=== PATIENT | female | born 1985 | race Caucasian/White ===

== ENCOUNTER 2017-03-19 10:18 | Emergency (ER) | payer OTHER ==
[~2017-03-19] VITALS: Ht 170.2 cm; Wt 68.0 kg
[~2017-03-19 10:18] MED LIST: DIAZ5 PO; PERC5TAB12 PO; ZOFR4TAB3 SL
[2017-03-19 10:20] VITALS: BP 141/86; PULSE 87; RESP 14; TEMP 98.4; O2SAT 100
[2017-03-19] MEDS ORDERED: SODIUM CHLOR 0.9% 1000 ML INJ 1,000 ML IV ONE ×2 (12:11→13:00)
[2017-03-19] MEDS ORDERED: SODIUM CHLORIDE 0.9% FLUSH 10 ML FLUSH IVF PRN (12:15)
[2017-03-19] MEDS ORDERED: diphenhydrAMINE HCL 50 MG/ML VIAL IVP ONE (12:15)
[2017-03-19] MEDS ORDERED: DEXAMETHASONE SOD PHOS 20 MG/5 ML VIAL IV PUSH ONE (12:15)
[2017-03-19] MEDS ORDERED: METOCLOPRAMIDE HCL 10 MG/2 ML VIAL IVP ONE (12:15)
--- NOTE | 2017-03-19 12:23 | PD ---
HPI Chief Complaint: Headache Time Seen by Provider: 11:55 Travel History International Travel<30 days: No Contact w/Intl Traveler<30days: No Traveled to known affect area: No History of Present Illness HPI Patient is a 32-year-old female who presents to emergency with complaints of migraine headache. Patient reports that she has had frontal headache which has been ongoing for the past 2 days. Patient reports that this is associated with vision changes, along with photophobia. Patient reports that she has history of migraines in the past, reports that symptoms are more severe today. Patient reports that she did take taking Excedrin migraine with no relief of symptoms she also tried taking magnesium with no relief of symptoms as well. Patient reports that she has been feeling nauseous and has been vomiting, reports no relief with jouo-edo-affdgnv migraine medications. Patient denies any fever or chills, neck pain. Denies any chest pain or shortness of breath, patient with no other complaints at this time. PFSH Past Medical History Headaches: Yes ?: Not LMP: CURRENT Past Surgical History Surgical History: No Previous Surgery Tonsillectomy: Yes Other Surgery: Yes (BREAST AUGUMENTATION) Social History Alcohol Use: Yes (SOCIALLY) Tobacco Use: No Substance Use: No Allergies-Medications (Allergen,Severity, Reaction): Coded Allergies: amoxicillin (Verified Allergy, Severe, Hives, 02/02/17) Reported Meds & Prescriptions Reported Meds & Active Scripts Active Fioricet (Ixzdjdfqiv-Iqfytdfvecwcm-Buakhmrs) 50-300-40 Mg Cap 1-2 Cap PO Q6H PRN Zofran Odt (Ondansetron Odt) 4 Mg Tab 4 Mg SL Q6HR PRN Percocet (Oxycodone-Acetaminophen) 5-325 mg Tab 1 Tab PO Q8HR PRN 5 Days Valium (Diazepam) 5 Mg Tab 5 Mg PO BID PRN 5 Days Review of Systems General / Constitutional: No: Fever Eyes: No: Visual changes HENT: No: Headaches, Neck Stiffness, Neck Pain Cardiovascular: No: Chest Pain or Discomfort, Palpitations, Irregular Rhythm, Tachycardia Respiratory: No: Shortness of Breath Gastrointestinal: No: Abdominal Pain Genitourinary: No: Dysuria Musculoskeletal: No: Pain Skin: No Rash Neurologic: Positive: Headache, No: Weakness, Dizziness, Syncope, Focal Abnormalities, Coordination Problem, Tremor, Ataxia, Seizures Psychiatric: No: Depression Endocrine: No: Polydipsia Hematologic/Lymphatic: No: Easy Bruising Physical Exam Narrative GENERAL: moderate distress SKIN: Focused skin assessment warm/dry. HEAD: Atraumatic. Normocephalic. EYES: Pupils equal and round. No scleral icterus. No injection or drainage. ENT: No nasal bleeding or discharge. Mucous membranes pink and moist. NECK: Trachea midline. No JVD. Negative Kernig's and Brudzinski sign CARDIOVASCULAR: Regular rate and rhythm. No murmur appreciated. RESPIRATORY: No accessory muscle use. Clear to auscultation. Breath sounds equal bilaterally. GASTROINTESTINAL: Abdomen soft, non-tender, nondistended. Hepatic and splenic margins not palpable. MUSCULOSKELETAL: No obvious deformities. No clubbing. No cyanosis. No edema. NEUROLOGICAL: Awake and alert. No obvious cranial nerve deficits. Motor grossly within normal limits. Normal speech. CN 2-12 grossly intact with no neurovascular compromise PSYCHIATRIC: Appropriate mood and affect; insight and judgment normal. Data Data Last Documented VS Vital Signs Date Time Temp Pulse Resp B/P (MAP) Pulse Ox O2 Delivery O2 Flow Rate FiO2 03/19/17 12:49 100 03/19/17 10:20 98.4 87 14 Orders Orders Complete Blood Count With Diff (03/19/17 12:11) Comprehensive Metabolic Panel (03/19/17 12:11) Prothrombin Time / Inr (Pt) (03/19/17 12:11) Act Partial Throm Time (Ptt) (03/19/17 12:11) Ct Brain W/O Iv Contrast(Rout) (03/19/17 12:11) Ecg Monitoring (03/19/17 12:11) Iv Access Insert/Monitor (03/19/17 12:11) Oximetry (03/19/17 12:11) Sodium Chloride 0.9% Flush (Ns Flush) (03/19/17 12:15) Diphenhydramine Inj (Benadryl Inj) (03/19/17 12:15) Metoclopramide Inj (Reglan Inj) (03/19/17 12:15) Sodium Chlor 0.9% 1000 Ml Inj (Ns 1000 M (03/19/17 12:11) Dexamethasone Inj (Decadron Inj) (03/19/17 12:15) Ed Urine Pregnancytest Poc (03/19/17 12:49) Sodium Chlor 0.9% 1000 Ml Inj (Ns 1000 M (03/19/17 13:00) Ketorolac Inj (Toradol Inj) (03/19/17 14:30) Magnesium Sulfate 1 Gm Premix (Magnesium (03/19/17 14:45) Labs Laboratory Tests Test 03/19/17 13:30 White Blood Count 8.3 TH/MM3 Red Blood Count 4.70 MIL/MM3 Hemoglobin 13.6 GM/DL Hematocrit 39.3 % Mean Corpuscular Volume 83.5 FL Mean Corpuscular Hemoglobin 28.9 PG Mean Corpuscular Hemoglobin Concent 34.6 % Red Cell Distribution Width 13.3 % Platelet Count 284 TH/MM3 Mean Platelet Volume 7.1 FL Neutrophils (%) (Auto) 70.6 % Lymphocytes (%) (Auto) 22.2 % Monocytes (%) (Auto) 5.3 % Eosinophils (%) (Auto) 1.5 % Basophils (%) (Auto) 0.4 % Neutrophils # (Auto) 5.9 TH/MM3 Lymphocytes # (Auto) 1.8 TH/MM3 Monocytes # (Auto) 0.4 TH/MM3 Eosinophils # (Auto) 0.1 TH/MM3 Basophils # (Auto) 0.0 TH/MM3 CBC Comment DIFF FINAL Differential Comment Prothrombin Time 10.5 SEC Prothromb Time International Ratio 1.0 RATIO Activated Partial Thromboplast Time 26.1 SEC Blood Urea Nitrogen 8 MG/DL Creatinine 0.54 MG/DL Random Glucose 80 MG/DL Total Protein 7.2 GM/DL Albumin 3.9 GM/DL Calcium Level 8.3 MG/DL Alkaline Phosphatase 52 U/L Aspartate Amino Transf (AST/SGOT) 16 U/L Alanine Aminotransferase (ALT/SGPT) 12 U/L Total Bilirubin 0.6 MG/DL Sodium Level 138 MEQ/L Potassium Level 3.7 MEQ/L Chloride Level 108 MEQ/L Carbon Dioxide Level 21.8 MEQ/L Anion Gap 8 MEQ/L Estimat Glomerular Filtration Rate 131 ML/MIN MDM Medical Decision Making Medical Screen Exam Complete: Yes Emergency Medical Condition: Yes Medical Record Reviewed: Yes Interpretation(s) Vital Signs Date Time Temp Pulse Resp B/P (MAP) Pulse Ox O2 Delivery O2 Flow Rate FiO2 03/19/17 10:20 98.4 87 14 141/86 (104) 100 Differential Diagnosis migraine, ICH, electrolyte abnormality, SAH Narrative Course During the course of the patients emergency department visit, the patients history, examination, and differential diagnosis were reviewed with the patient. The patient was placed on a borematic operator with oximetry and frequent blood pressure monitoring. The patient had 20 gauge IV access obtained and blood work sent for analysis. The patient was initially provided IV dexamethasone, IV reglan and IV Benadryl The patients laboratory studies were reviewed and remarkable for: CBC & BMP Diagram 03/19/17 13:30 Total Protein 7.2, Albumin 3.9, Calcium Level 8.3 L, Alkaline Phosphatase 52, Aspartate Amino Transf (AST/SGOT) 16, Alanine Aminotransferase (ALT/SGPT) 12, Total Bilirubin 0.6 Radiology studies were reviewed and remarkable for: Last Impressions Head CT 03/19/17 1211 Signed Impressions: Service Date/Time: Friday, March 19, 2017 13:23 - CONCLUSION: Normal examination. Jn Simons MD Patient reevaluated, patient reports that she is feeling much better at this time. I did offer her LP to rule out SAH, all risks and benefits reviewed with her in detail, patient refuses LP at this time as she reports that she is feeling much better with near resolution of symptoms. Patient reevaluated, patient reports complete resolution of symptoms at this time. LP was offered again to rule out SAH - patient refuses procedure at this time. Signs and symptoms of when to return to the ER was reviewed with patient in detail. She will follow up with her pcp and will return to ER as needed Critical Care Narrative Aggregate critical care time was 30 minutes. Time to perform other separately billable procedures was not included in the critical care time. My time did not include minutes spent treating any other patients simultaneously or on activities that did not directly contribute to the patient's treatment. The services I provided to this patient were to treat and/or prevent clinically significant deterioration that could result in: , decompensation, deterioration I provided critical care services requiring my management, as noted below: Chart data review, documentation time, medication orders and management, vital sign assessments/reviewing monitor data, ordering and reviewing lab tests, ordering and interpreting/reviewing x-rays and diagnostic studies, care of the patient and discussion of the patient with the admitting physicians. Diagnosis Primary Impression: Cephalgia Qualified Codes: R51 - Headache Patient Instructions: General Instructions Additional Instructions: Please provide patient with a copy of their lab work and studies at discharge* * Please follow up with your primary care doctor in 2-3 days Return to the ER if symptoms worsen or progress Return to the ER as needed Please drink plenty of fluids Med/Other Pt SpecificInfo: Prescription(s) given Scripts Wblxblweae-Ppzazwgdigzyv-Ljqemhyh (Fioricet) 50-300-40 Mg Cap 1-2 CAP PO Q6H Y for HEADACHE, #12 CAP 0 Refills Prov: Tita Duran DO 03/19/17 Disposition: 01 DISCHARGE HOME Condition: Stable Tita Duran DO Mar 19, 2017 12:23
[2017-03-19 12:49] VITALS: O2SAT 100
[2017-03-19 14:03] LABS: AUTOMATED NEUTROPHIL # 5.9 TH/MM3 (1.8-7.7); BASOPHIL % 0.4 % (0.0-2.0); EOSINOPHIL # 0.1 TH/MM3 (0-0.4); EOSINOPHIL % 1.5 % (0.0-4.0); HEMATOCRIT 39.3 % (35.0-46.0); HEMO FLAGS DIFF FINAL; LYMPH % 22.2 % (9.0-44.0); LYMPHOCYTE # 1.8 TH/MM3 (1.0-4.8); MEAN CELL VOLUME 83.5 FL (80.0-100.0); MEAN CORPUSCULAR HEMOGLOBIN 28.9 PG (27.0-34.0); MEAN CORPUSCULAR HGB CONC 34.6 % (32.0-36.0); MONO % 5.3 % (0.0-8.0); NEUT % 70.6 % (16.0-70.0); PLATELET COUNT 284 TH/MM3 (150-450); RED CELL DISTRIBUTION WIDTH 13.3 % (11.6-17.2); WHITE BLOOD COUNT 8.3 TH/MM3 (4.0-11.0)
[2017-03-19 14:15] LABS: APTT (PATIENT) 26.1 SEC (24.3-30.1); PROTHROMBIN TIME - PATIENT 10.5 SEC (9.8-11.6)
[2017-03-19 14:22] LABS: ALKALINE PHOSPHATASE 52 U/L (45-117); ALT (GPT) 12 U/L (10-53); TOTAL BILIRUBIN ADULT 0.6 MG/DL (0.2-1.0)
--- NOTE | 2017-03-19 14:26 | RADRPT ---
EXAM DATE/TIME: 03/19/2017 13:23 [facility] COMPARISON: No previous studies available for comparison. INDICATIONS : Headaches with vomiting and blurred vision for two days. RADIATION DOSE: 34.92 CTDIvol (mGy) MEDICAL HISTORY : None SURGICAL HISTORY : Tonsillectomy. ENCOUNTER: Initial ACUITY: 2 days PAIN SCALE: 9/10 LOCATION: Bilateral cranial TECHNIQUE: Multiple contiguous axial images were obtained of the head. Using automated exposure control and adj ustment of the mA and/or kV according to patient size, radiation dose was kept as low as reasonably a chievable to obtain optimal diagnostic quality images. DICOM format image data is available electro nically for review and comparison. FINDINGS: CEREBRUM: The ventricles are normal for age. No evidence of midline shift, mass lesion, hemorrhage or acute in farction. No extra-axial fluid collections are seen. POSTERIOR FOSSA: The cerebellum and brainstem are intact. The 4th ventricle is midline. The cerebellopontine angle i s unremarkable. EXTRACRANIAL: The visualized portion of the orbits is intact. SKULL: The calvaria is intact. No evidence of skull fracture. CONCLUSION: Normal examination. Jn Simons MD on March 19, 2017 at 14:24 Board Certified Radiologist. This report was verified electronically.
[2017-03-19 14:28] LABS: ANION GAP 8 MEQ/L (5-15); AST (GOT) 16 U/L (15-37); BICARBONATE 21.8 MEQ/L (21.0-32.0); BLOOD UREA NITROGEN 8 MG/DL (7-18); CHLORIDE 108 MEQ/L (98-107); GLOMERULAR FILTRATION RATE 131 ML/MIN (>89); POTASSIUM 3.7 MEQ/L (3.5-5.1); SODIUM (NA) 138 MEQ/L (136-145)
[2017-03-19] MEDS ORDERED: KETOROLAC TROMETHAMINE 30 MG/ML (IVP) VIAL IV PUSH ONE (14:30)
[2017-03-19] MEDS ORDERED: MAGNESIUM SULFATE 1 GM PREMIX 100 ML IV ONE (14:45)
[2017-03-19] MEDS ORDERED: BUTA1CAP PO (16:13)
== END 2017-03-19 16:39 | disposition home or self-care (01) ==
LOC: NEPD 10:18
DX: R51 Headache (principal)
CPT/HCPCS: 70450; 80053; 84703; 85025; 85610; 85730; 96361; 96374; 96375; 99285; J1100; J1200; J1885; J2765; J3475; J7030